=== PATIENT | female | born 1950 | race Caucasian/White ===

== ENCOUNTER 2023-10-04 07:39 | Day surgery (SDC) | payer OTHER, MEDICAID ==
[~2023-10-04] VITALS: Ht 157.5 cm; Wt 81.2 kg
[~2023-10-04 07:39] MED LIST: CEFAZOLIN SOD 2 GM in D5W 50 ML IV ONE
[2023-10-04] MEDS ORDERED: SCOPOLAMINE HYDROBROMIDE 1 MG PATCH .72 H (TRANSDERM-SCOP) TD ONE (07:58)
[2023-10-04] MEDS ORDERED: GABAPENTIN 300 MG CAPSULE ONE (07:59)
[2023-10-04] MEDS ORDERED: ACETAMINOPHEN 500 MG TABLET ONE (08:00)
[2023-10-04] MEDS: SCOPOLAMINE HYDROBROMIDE 1 MG PATCH .72 H (TRANSDERM-SCOP) TD ONE (08:26)
[2023-10-04] MEDS: GABAPENTIN 300 MG CAPSULE PO ONE (08:26)
[2023-10-04] MEDS: ACETAMINOPHEN 500 MG TABLET PO ONE (08:26)
[2023-10-04] MEDS ORDERED: DEXAMETHASONE SOD PHOSPHATE 4 MG/ML VIAL ONE (10:44)
[2023-10-04] MEDS ORDERED: LABETALOL 100 MG/ 20ML VIAL IVP PRN (12:00)
[2023-10-04] MEDS ORDERED: hydrALAZINE HCL 20 MG/ML VIAL IVP PRN (12:00)
[2023-10-04] MEDS ORDERED: HYDROmorphone 1 MG/ML INJ. CARTRIDGE IVP PRN ×2 (12:00)
[2023-10-04] MEDS ORDERED: LR 1,000 ML IV SCH (12:00)
[2023-10-04] MEDS ORDERED: METOCLOPRAMIDE HCL 10 MG/2 ML VIAL IVP PRN (12:00)
[2023-10-04] MEDS ORDERED: MEPERIDINE HCL/PF 25 MG/ML DISP.SYRIN IVP PRN (12:00)
[2023-10-04 13:06] VITALS: PULSE 79; RESP 18; TEMP 98.5; O2SAT 98
[2023-10-04 13:13] VITALS: BP_SYST 156
== END 2023-10-04 15:30 | disposition home or self-care (01) ==
LOC: SDS 07:39 → SMU 07:39 → EDSTATUS 10:30 → SDS 15:30
PROVIDERS: ATTEND Orthopaedic Surgery Sports Medicine
DX: M17.11 Unilateral primary osteoarthritis, right knee (principal); I70.0 Atherosclerosis of aorta; I10 Essential (primary) hypertension; E78.5 Hyperlipidemia, unspecified; I25.10 Atherosclerotic heart disease of native coronary artery without angina pectoris; E11.9 Type 2 diabetes mellitus without complications; Z95.1 Presence of aortocoronary bypass graft; Z98.890 Other specified postprocedural states; Z90.710 Acquired absence of both cervix and uterus; Z79.82 Long term (current) use of aspirin; Z79.899 Other long term (current) drug therapy
CPT/HCPCS: 87081; 71046; 27447; 97162; 64447; 73560; 97110; 97530; 97116; 88305; 88311; J3490 ×3; J0690; J0696; J1100; J3465; J2405; J2704; J3370; J3010; J7060 ×2; J7120; C1713 ×2; C1776

== ENCOUNTER 2024-02-14 06:04 | Day surgery (SDC) | payer OTHER, MEDICAID ==
[~2024-02-14] VITALS: Ht 165.1 cm; Wt 82.6 kg
[2024-02-14] MEDS ORDERED: ACETAMINOPHEN 500 MG TABLET ONE (06:10)
[2024-02-14] MEDS ORDERED: oxyCODONE HCL 10 MG TAB.ER.12H PO ONE (06:13)
[2024-02-14] MEDS ORDERED: GABAPENTIN 300 MG CAPSULE ONE (06:14)
[2024-02-14] MEDS: GABAPENTIN 300 MG CAPSULE PO ONE (06:28)
[2024-02-14] MEDS: ACETAMINOPHEN 500 MG TABLET PO ONE (06:28)
[2024-02-14] MEDS ORDERED: NS IRRIG SOLN 1000 ML IR ONE (07:00)
[2024-02-14] MEDS ORDERED: SUGAMMADEX SODIUM 200 MG/2 ML VIAL IV ONE (07:00)
[2024-02-14] MEDS ORDERED: MIDAZOLAM HCL 2 MG/2 ML VIAL (VERSED) ONE (07:00)
[2024-02-14] MEDS ORDERED: CEFAZOLIN SOD 2 GM in D5W 50 ML IV ONE (07:00)
[2024-02-14] MEDS ORDERED: DESFLURANE 15 MIN GAS INH ONE (07:00)
[2024-02-14] MEDS ORDERED: WATER FOR IRRIGATION,STERILE 1,000 ML IRRIG.SOLN IR ONE (07:00)
[2024-02-14] MEDS ORDERED: ROCURONIUM BROMIDE 10 MG/ML (ZEMURON) ONE (07:00)
[2024-02-14] MEDS ORDERED: TRANEXAMIC ACID 1,000 MG/10 ML VIAL ONE (07:00)
[2024-02-14] MEDS ORDERED: fentaNYL CITRATE/PF 100 MCG/2 ML AMP ONE (07:00)
[2024-02-14] MEDS ORDERED: KETOROLAC TROMETHAMINE 30 MG VIAL ONE (07:00)
[2024-02-14] MEDS ORDERED: PROPOFOL 200MG/ 20ML VIAL (DIPRIVAN) IV ONE (07:00)
[2024-02-14] MEDS ORDERED: BUPIVACAINE /PF 0.25% 30 ML VIAL INJ ONE (07:00)
[2024-02-14] MEDS ORDERED: LR 1,000 ML IV.SOLN IV ONE (07:00)
[2024-02-14] MEDS ORDERED: VANCOMYCIN HCL 1000 MG/VIAL IV ONE (07:00)
[2024-02-14] MEDS ORDERED: LIDOCAINE MPF 2% 20 MG/1 ML, 5 ML VIAL INH ONE (07:00)
[2024-02-14] MEDS ORDERED: ONDANSETRON HCL 4 MG/2 ML VIAL ONE (07:00)
[2024-02-14] MEDS ORDERED: DEXAMETHASONE SOD PHOSPHATE 4 MG/ML VIAL ONE (07:00)
[2024-02-14] MEDS: oxyCODONE HCL 10 MG TAB.ER.12H PO ONE (07:15)
[2024-02-14] MEDS ORDERED: MEPERIDINE HCL/PF 25 MG/ML DISP.SYRIN IVP PRN (08:00)
[2024-02-14] MEDS ORDERED: LABETALOL 100 MG/ 20ML VIAL IVP PRN (08:00)
[2024-02-14] MEDS ORDERED: LR 1,000 ML IV SCH (08:00)
[2024-02-14] MEDS ORDERED: HYDROmorphone 1 MG/ML INJ. CARTRIDGE IVP PRN ×2 (08:00)
[2024-02-14] MEDS ORDERED: METOCLOPRAMIDE HCL 10 MG/2 ML VIAL IVP PRN (08:00)
[2024-02-14] MEDS ORDERED: hydrALAZINE HCL 20 MG/ML VIAL ONE (09:30)
[2024-02-14] MEDS: hydrALAZINE HCL 20 MG/ML VIAL IVP PRN (09:30)
[2024-02-14] MEDS: TAMSULOSIN HCL 0.4 MG CAP PO ONE (10:45)
[2024-02-14] MEDS: CEFEPIME 2 GM in D5W 100 ML IV SCH (12:00)
[2024-02-14 12:52] VITALS: BP_SYST 183; PULSE 65; RESP 18; TEMP 98.4; O2SAT 98
== END 2024-02-14 12:30 | disposition home or self-care (01) ==
LOC: SDS 06:04 → SMU 06:08 → SDS 12:30
PROVIDERS: ATTEND Orthopaedic Surgery Sports Medicine
DX: M17.12 Unilateral primary osteoarthritis, left knee (principal); M25.762 Osteophyte, left knee; M25.562 Pain in left knee; I10 Essential (primary) hypertension; E78.5 Hyperlipidemia, unspecified; E66.9 Obesity, unspecified; G89.18 Other acute postprocedural pain; Z68.30 Body mass index [BMI] 30.0-30.9, adult; Z96.651 Presence of right artificial knee joint; Z98.890 Other specified postprocedural states; Z88.5 Allergy status to narcotic agent; Z79.899 Other long term (current) drug therapy
CPT/HCPCS: 87081; 27447; 97162; 64447; 73560; 97110; 97530; 97116; 88305; 88311; J3490 ×3; J0690; J1100; J0360; J1885; J3465; J2405; J2704; J3370; J3010; J7060 ×2; J7120; C1776 ×3; C1713; J0692